=== PATIENT | male | born 1955 | race Caucasian/White ===

== ENCOUNTER 2023-09-03 11:35 | Inpatient (IN) | payer OTHER, SELFPAY ==
[2023-09-03] VITALS (25 sets, daily range): BP systolic 95–129; BP diastolic 44–59; BMI 25.2; BMI 25.8
--- NOTE | 2023-09-03 08:56 | ED.GENMED ---
History of Present Illness
General
Chief Complaint: Dizziness
Source: patient, spouse and ambulance crew
Exam Limitations: none
Time Seen by Provider: 09/03/23 08:52
Nursing documentation reviewed up to this point in time: agreed with
History of Present Illness
History of Present Illness:
68-year-old male presents emergency department due to multiple syncope episodes and black stools. He went to urgent care, and passed out. He vomited, states it was water. He drinks 6-8 beers daily.
Past History
Past History
ED Past Medical History: None
ED Past Surgical History: Orthopedic (Knee surgery, shoulder surgery, hip replacement)
Social History
Tobacco: Non-smoker
Alcohol: Chronic alcoholic
Drug: None
Personal:
Living: with family
Review of Systems
Review of Systems
Allergies reviewed?: Yes
All Other Systems: Not applicable
Constitutional: Reports no symptoms
EENT: Reports no symptoms
Respiratory: Reports no symptoms
Cardiac: Reports syncope
ABD/GI: Reports vomiting and black stools
: Reports no symptoms
Musculoskeletal: Reports no symptoms
Skin: Reports no symptoms
Neurological: Reports no symptoms
Endocrine: Reports no symptoms
Hematologic/Lymphatic: Reports no symptoms
Psychiatric: Reports no symptoms
Phy Exam
Physical Exam
Physical Exam:
Physical Exam
General: BP 95/51
Neck: supple. no meningeal signs. normal posterior pharynx
Heart: s1/s2 regular rate and rhythm, no murmur. equal radial
pulses.
HEENT: Pupils equal round reactive to light, EOMI
Lungs: no acute respiratory distress. clear bilaterally
Abdomen: normal bowel sounds. not tender. no CVAT, rectal exam maroonish blackish stool guaiac positive
Neuro: alert and oriented. no focal neurological deficits
Skin: no rash
Psychiatric: well kept. interactive and cooperative
Extremities: no edema. no calf tenderness. negative homans. good distal pulses
Course
Orders/Labs/Results
Orders:
Orders
09/03/23 08:53
Cardiac Monitoring- Treatment ONCE
IV Insert/Care/Rem.- Treatment PRN
09/03/23 08:59
Type+Screen Urgent
Complete Blood Count/With Diff Urgent
Comprehensive Metabolic Panel Urgent
Glycohemoglobin (HgbA1c) Urgent
Magnesium Urgent
Comment: MAG ADDED ON BY FLOOR 1:40PM 09-03-23
Phosphorus Urgent
Comment: HGBA1C & PHOS ADDED ION BY FLOOR 3:30PM 09-03-23
Troponin I Urgent
09/03/23 09:03
EKG [Electrocardiogram (*1)] Urgent
Reason for Study: Syncope
09/03/23 09:04
EKG- Treatment ONCE
09/03/23 09:12
PTT Urgent
Prothrombin Time Urgent
09/03/23 09:20
Pantoprazole 80 mg/100 ml Nss [Protonix] 80 mg in 100 ml IV NOW
Pantoprazole [Protonix IV] 80 mg IV NOW STA
09/03/23 09:22
Octreotide [Sandostatin] 50 mcg IV NOW STA
09/03/23 09:24
0.9% Sodium Chloride 1000 ml [Nss] 1,000 ml IV BOLUS
09/03/23 09:26
Octreotide Acetate [Sandostatin] 600 mcg 0.9% Sodium Chloride 500 ml [Nss] 500 ml IV NOW
09/03/23 09:33
Blood Bank Products [* Blood Bank Products] Urgent
'leil[facility] Orders: 1 unit prbcs
Blood Bank Products: *Packed RBC Leuko(PRBC's)
Quantity: 1
Transfuse Today: Yes
Reason: Bleeding
09/03/23 11:11
Admit/Transfer Patient As Directed
Co-Sign Provider:
Level of Care: Inpatient admission
Assign to:: ICU
Physician / Group: Raymond
Diagnosis: Acute GI bleed
Reason for Hospitalization: Transfusion, GI consult
Expected length of stay greater than two midnights?: Yes
ELOS- Estimated Length of Stay in days: 4
I certify the patient meets the requirements for IP care: Yes
09/03/23 11:12
Code Status As Directed
Resuscitation Status: Full Code
09/03/23 13:31
0.9% Sodium Chloride 1000 ml [Nss] 1,000 ml IV 80 mls/hr
0.9% Sodium Chloride [Nss (Preservative Free)] See Protocol IV PRN PRN
FOLic ACID [Folvite] 1 mg 0.9% Sodium Chloride 50 ml [Nss] 50 ml IV DAILYPRN
Lorazepam [Ativan] 1 mg IV Q1HPRN PRN
Lorazepam [Ativan] 1 mg PO Q2HPRN PRN
Lorazepam [Ativan] 2 mg IV Q1HPRN PRN
09/03/23 13:31
Case Management Consult Once
Case Management Consult: Other
Comment: Substance abuse counseling
DIETARY CONSULT Routine
Reason for Consult: Nutrition support, possible refeeding guidelines
GASTROINTESTINAL CONSULT Routine
Consulting Provider: Doreen Power
Was physician already notified: Yes
Glassine Machine Tender Consult Routine
Consulting Provider: Rani Koenig
Was physician already notified: Yes
Activity As Directed
Activity Level: Bedrest
MSAS SCORE As Directed
MSAS Score 0-4: Repeat MSAS every 2 hours until 0-4 for three consecutive assessments, then every 4 hours x 48
hours.
MSAS Score 5-7: For MILD withdrawl symptoms. Repeat MSAS and RASS every 2 hours
MSAS Score 8-11: For MODERATE withdrawal symptoms. Repeat MSAS and RASS every 1 hour. Consider ICU or IMU
level of care.
MSAS Score > 11: For SEVERE withdrawal symptoms. Repeat MSAS and RASS every 1 hour. Notify provider, consider
ICU level of care.
MSAS Additional Instructions: If no improvement or no decrease in score from severe to moderate within 12
hours, consult psychiatry
MSAS Notify Provider: Notify provider if patient requires more than 10 mg of Lorazepam in eight hour period.
Sequential Compression Device [Pneumatic Compression Sleeves] As Directed
Type: Knee high
DX Deep Vein Thrombosis Video Routine
09/03/23 16:00
Phenobarbital Sodium [Phenobarbital] 97.5 mg IV TID
Thiamine Injection 200 mg IV Q8
09/03/23 18:00
HH [H&H] Routine
09/03/23 19:00
Pantoprazole 80 mg/100 ml Nss [Protonix] 80 mg in 100 ml IV Q10H
09/03/23 22:00
Octreotide Acetate [Sandostatin] 600 mcg 0.9% Sodium Chloride 500 ml [Nss] 500 ml IV Q12H
09/04/23 06:00
BMP [Basic Metabolic Panel] IN AM
CBC/With Diff [Complete Blood Count/With Diff] IN AM
Magnesium IN AM
09/04/23 08:00
FOLic ACID [Folvite] 1 mg PO DAILY
09/05/23 06:00
CBC/With Diff [Complete Blood Count/With Diff] IN AM
09/05/23 16:00
Phenobarbital [Luminal] 64.8 mg PO TID
09/06/23 06:00
CBC/With Diff [Complete Blood Count/With Diff] IN AM
09/06/23 20:00
Thiamine HCl [Vitamin B1] 100 mg PO BID
09/07/23 16:00
Phenobarbital [Luminal] 32.4 mg PO TID
Abnormal Lab Results
09/03/23
08:59
RBC 2.46 L 10^6/uL
(4.70-6.10)
Hgb 7.6 L g/dL
(13.0-18.0)
Hct 22.5 L %
(39.0-52.0)
MPV 10.6 H fL
(7.4-10.4)
Abs Immat Gran (auto) 0.1 H 10^3/uL
(0-0.05)
Absolute Neuts (auto) 7.2 H 10^3/uL
(1.4-6.5)
Immature Gran % 0.6 H %
(0-0.5)
Sodium 131 L mmol/L
(135-145)
BUN 39 H mg/dl
(9-20)
Glucose 183 H mg/dl
(70-99)
Calcium 7.7 L mg/dl
(8.4-10.2)
Total Protein 4.8 L g/dl
(6.3-8.2)
Albumin 2.9 L g/dl
(3.5-5.0)
Crossmatch IS Only See Detail
09/03/23 08:59
09/03/23 08:59
Vital Signs
Initial and Last Documented VS:
Initial Vital Signs
Temp Pulse Resp BP Pulse Ox
97.8 F 85 15 129/49 100
09/03/23 08:41 09/03/23 08:41 09/03/23 08:41 09/03/23 08:41 09/03/23 08:41
Last Documented Vital Signs
Temp Pulse Resp BP Pulse Ox
98.5 F 80 18 118/54 100
09/03/23 14:18 09/03/23 14:18 09/03/23 14:18 09/03/23 14:18 09/03/23 12:30
MDM/Problems Addressed
Differential Diagnosis Includes:
Dysrhythmia, GI bleed
MDM/Problems Addressed:
68-year-old male with GI bleed, syncope. 1 unit packed red blood cells, Protonix, octreotide given. GI to see patient.
*Radiology
Radiology exam reviewed: radiology read reviewed (Chest x-ray no acute findings)
*Pulse Oximetry
Patient hypoxic: no
*EKG
Interpreted by ED Provider?: Yes
EKG Intrepretation Date: 09/03/23
EKG Intrepretation Time: 09:08
Interpretation: abnormal
Comparison EKG: no comparison EKG present
Heart Rate: 90
Rate: normal
Rhythm: sinus
Evangeline: normal axis
Interval: normal interval
QRS Pattern: normal QRS
Ischemia: non-specific ST changes
*Field Service Manager Interpretation
Rate: normal
Interpretation: normal
Heart Rate: 95
Rhythm: sinus
*Critical Care Note
Total Time (30-74mins, 75-104mins- exclusive of procedures): 30
comment:
Critical care statement: A total of 30 minutes of critical care time was provided for this patient. This includes management of unstable vital signs, evaluation of the patient at bedside, reviewing the patient's pertinent medical records, discussion
with consultants, review of old EKGs and review of pertinent medical records. This time with separate from time utilized to perform the aforementioned documented procedures
Patient Management
Social determinants of health affecting care: Substance abuse (alcohol)
Discussion with other providers: Hospitalist and Transcription (GI)
Escalation/DeEscalation of care consider admission/obs:
admit indicated
ED Attending Note
-
Portions of this chart may have been created with voice recognition software.� Occasional wrong word or��sound alike� substitutions may have occurred due to the inherent limitations of voice recognition software.
Discharge Plan
Departure
Patient Disposition: Admit
Date of Disposition: 09/03/23
Time of Disposition: 09:32
Admit to: ICU
Presentation/result/management discussed w/ accepting MD/DO: Hospitalist
Patient with high blood pressure during this ER visit?: No
Condition: Fair
Discharge Problem:
Acute upper gastrointestinal bleeding, Acute blood loss anemia
Interventions
Interventions:
*Risk Screen - Suicide Last Done: 09/03/23 08:41
*General Assessment Last Done: 09/03/23 08:41
*Neglect/Abuse Screening Last Done: 09/03/23 08:41
ED- Fall Risk Assessment Last Done: 09/03/23 08:55
*ED COVID-19 Vaccine History Last Done: 09/03/23 08:55
*Nursing Disposition Last Done: 09/03/23 12:53
ED- Neurological Assessment Last Done: 09/03/23 08:41
ED- Cardiac Assessment Last Done: 09/03/23 08:41
ED Swallowing Screen Last Done: 09/03/23 08:55
Discharge Date and Time
Discharge Date/Time: 09/03/23 12:53
[2023-09-03 09:09] LABS: % Basophils 0.6 % (0-2); % Eosinophils 0.5 % (0-6); % Immature Granulocytes 0.6 % (0-0.5); % Lymphocytes 20.6 % (20.5-51.1); % Monocytes 6.1 % (1.7-9.3); % Neutrophils 71.6 % (42.2-75.2); Absolute Basophils 0.1 10^3/uL (0-0.2); Absolute Eosinophils 0.1 10^3/uL (0-0.7); Absolute Immature Granulocytes 0.1 10^3/uL (0-0.05); Absolute Lymphocytes 2.1 10^3/uL (1.2-3.4); Absolute Monocytes 0.6 10^3/uL (0.1-0.6); Absolute Neutrophils 7.2 10^3/uL (1.4-6.5); Hematocrit 22.5 % (39.0-52.0); Hemoglobin 7.6 g/dL (13.0-18.0); Mean Corp Hgb Conc. 33.8 g/dL (33.0-37.0); Mean Corpuscular Hgb 30.9 pg (27.0-31.0); Mean Corpuscular Volume 91.5 fL (80.0-94.0); Mean Platelet Volume 10.6 fL (7.4-10.4); Nucleated Red Blood Cells % 0 % (-); Platelet Count 197 10^3/uL (130-400); Red Blood Cell Count 2.46 10^6/uL (4.70-6.10); White Blood Cell Count 10.1 10^3/uL (4.8-10.8)
[2023-09-03 09:20] LABS: ALT (SGPT) 24 U/L (0-50); AST (SGOT) 26 U/L (17-59); Albumin 2.9 g/dl (3.5-5.0); Alkaline Phosphatase 59 U/L (38-126); Blood Urea Nitrogen 39 mg/dl (9-20); Calcium 7.7 mg/dl (8.4-10.2); Carbon Dioxide 23 mmol/L (22-30); Chloride 103 mmol/L (98-107); Estimated Creatinine Clearance 83 ml/min; Glucose 183 mg/dl (70-99); Potassium 4.1 mmol/L (3.5-5.1); Sodium 131 mmol/L (135-145); Total Bilirubin 0.6 mg/dl (0.2-1.3); Total Protein 4.8 g/dl (6.3-8.2); eGFR > 60.00
[2023-09-03 09:31] LABS: Troponin I < 0.012 ng/ml
[2023-09-03] MEDS: SANDOSTATIN 50 MCG IV (09:34)
[2023-09-03] MEDS: NSS 1000 IV ×2 (09:39→14:57)
[2023-09-03] MEDS: PROTONIX IV 80 MG IV (09:39)
[2023-09-03 09:41] LABS: INR 1.08; PT 13.9 Sec (11.4-14.6)
[2023-09-03] MEDS: PROTONIX 100 IV ×2 (09:46→19:05)
[2023-09-03] MEDS: SANDOSTATIN 500.6 MCG IV (09:52)
[2023-09-03 09:56] LABS: APTT 23.4 Sec (23.4-35.0)
--- NOTE | 2023-09-03 10:09 | CON.GI ---
Addendum entered and electronically signed by Doreen Power MD 09/03/23 12:48:
I saw and examined the patient.
The ICE SCRAPER or PA's note was reviewed and I agree with the note.
Comment:
Pt with a hx of etoh, nsaid use with melena, hypotension. Never had episodes before, no hx of egd.
abd: soft, nontender
hgb 7.6
impression:
UGIB
plan:
NPO
transfuse as needed
IV PPI ggt and octreotide for now.
EGD urgent
avoid nsaids
Original Note:
Consultation
-
Date/Time Consultation Requested: 09/03/23 0945
Date/Time Consultation Performed: 09/03/23 1015
Requesting Provider: Zoran Connelly DO
Performing Provider: MATTHIAS Orellana, Doreen Power MD
Reason for Consultation: melena
Medical History
Chief Complaint / HPI
Chief Complaint: black stools, dizziness
History of Present Illness:
Pt is a 68yo with past hx orthopedic surgeries, daily ETOH use, colon polyp, family hx colon Cancer with onset of black stool and near syncope. He related have a normal hbg on last check in May. He admits to Motrin use 4 tabs about 5 days per
week. He typically will have normal stools but noted with about 4 episode of black stools since 2 am. On admission noted with hypotension hbg down to 7.6 with BUN 39 and maroonish/black stool in ER exam. Pt admits to years of daily ETOH 6-8
drinks.
Pt denies dysphagia, odynophagia, GERD, nausea, vomiting, abdominal pain, diarrhea, constipation or red stools. recent wt loss 5 lbs some intention and unintentional loss. No anticoagulation use. No prior EGD. Hx several colonoscopies at
[facility] with hx polyp last completed 1 year ago.
Past Medical History
Past Medical History: Other (colon polyps)
Past Surgical History: Orthopedic (knee surgery, shoulder surgery, hip surgery )
Social History
Tobacco: Non-Smoker
Alcohol: Daily (6-8 beers daily )
Drug: None
Personal:
Living: With Family
Employment: Retired
Family History
Family History: Other (father with hx colon Ca on 60's, no family hx liver problems)
Allergies / Home Medications
Allergy/AdvReac Type Severity Reaction Status Date / Time
No Known Allergies Allergy Verified 09/03/23 08:58
�Medication �Instructions �Recorded
ibuprofen 200 mg tablet 800 mg PO DAILYPRN PRN mild pain 09/03/23
Review of Systems
-
History Source: Patient and Family
Constitutional: Reports Weight Loss (few lbs )
EENT: Reports No Symptoms
Respiratory: Reports No Symptoms
Cardiac: Reports Other (near syncope prior to admission )
Abdomen/GI: Reports Black Stools
: Reports No Symptoms
Musculoskeletal: Reports Joint Pain
Skin: Reports No Symptoms
Neurological: Reports Weakness
Endocrine: Reports No Symptoms
Hematologic/Lymphatic: Reports Bleeding
Vital Signs
Temp Pulse Resp BP Pulse Ox
97.8 F 77 17 99/54 98
09/03/23 08:41 09/03/23 10:00 09/03/23 10:00 09/03/23 10:00 09/03/23 10:00
Physical Exam
Exam
General: Well Developed, Well Nourished and No Apparent Distress
HEENT: Normocephalic and Anicteric
Respiratory: Clear
Cardiac: Regular Rhythm
GI: Soft, Non Tender and Non Distended
Rectal: Other (per ER black/burgundy stool)
Musculoskeletal: No Clubbing and No Cyanosis
Skin: Warm and Dry
Neuro: Awake, Alert and AO x 3
Psych: Calm
Results
WBC 10.1 10^3/uL (4.8-10.8) 07 08:59
Hgb 7.6 g/dL (13.0-18.0) L 09/03/23 08:59
Hct 22.5 % (39.0-52.0) L 09/03/23 08:59
MCV 91.5 fL (80.0-94.0) 07 08:59
Plt Count 197 10^3/uL (130-400) 07 08:59
Absolute Neuts (auto) 7.2 10^3/uL (1.4-6.5) H 09/03/23 08:59
PT 13.9 Sec (11.4-14.6) 09/03/23 09:12
INR 1.08 09/03/23 09:12
APTT 23.4 Sec (23.4-35.0) 09/03/23 09:12
Sodium 131 mmol/L (135-145) L 09/03/23 08:59
Potassium 4.1 mmol/L (3.5-5.1) 09/03/23 08:59
Chloride 103 mmol/L (98-107) 09/03/23 08:59
Carbon Dioxide 23 mmol/L (22-30) 09/03/23 08:59
BUN 39 mg/dl (9-20) H 09/03/23 08:59
Creatinine 0.8 mg/dL (0.7-1.3) 09/03/23 08:59
Calcium 7.7 mg/dl (8.4-10.2) L 09/03/23 08:59
Total Bilirubin 0.6 mg/dl (0.2-1.3) 09/03/23 08:59
AST 26 U/L (17-59) 09/03/23 08:59
ALT 24 U/L (0-50) 09/03/23 08:59
Alkaline Phosphatase 59 U/L (38-126) 09/03/23 08:59
Diagnostic Image Results:
Prior GI Procedures:
EGD: none
Colonoscopy: burak sosa last 1 year ago hx polyps
Assessment / Plan
-
Pt is a 68yo with past hx orthopedic surgeries, daily ETOH use, colon polyp, family hx colon Cancer with onset of black stool and near syncope. He related have a normal hbg on last check in May. He admits to Motrin use 4 tabs about 5 days per
week. He typically will have normal stools but noted with about 4 episode of black stools since 2 am. On admission noted with hypotension hbg down to 7.6 with BUN 39 and maroonish/black stool in ER exam. Pt admits to years of daily ETOH 6-8
drinks.
-melena with concern for UGI bleed
-symptomatic anemia with acute blood loss
-frequent NSAID use
-daily ETOH use
-hypoalbuminemia
other med problems:
-hx ortho surgeries in past
-hx colon polyps
-family hx colon Ca - father
PLAN:
Etiology of symptoms with concern for active Upper GI bleed with syncope, melena, hypotension and drop in hbg-- PUD with NSAID use, esophageal varices, portal HTN, gastritis vs other
plan for EGD today --pt agreeable to proceed
PPI and octreotide gtt
2 large bore IV's
for transfusion today
trend hbg
NPO
ETOH/ NSAID abstinence
updated at bedside
-
-
Thank you for consultation and allowing me to participate in the patient's care. Please call the healthcare economics consultant GI physician during the after hours with any questions or concerns.
--- NOTE | 2023-09-03 11:18 | HPS.HSE ---
Family Physician
-
Family Physician: Babs Lauren MD
Chief Complaint
-
Black stools, syncope
History of Present Illness
68-year-old male, daily drinker of alcohol, here with syncopal episodes twice during the night and melena. Denies hematochezia. Denies abdominal pain. Denies history of GI bleeding. Takes Motrin occasionally but not daily.
Medical History
Past Medical History
Past Medical History: Reports None
Past Surgical History: Reports Orthopedic
Social History
Tobacco: Non-smoker
Alcohol: Daily
Drug: None
Personal:
Living: With Family
Family History
Family History: Not pertinent
Allergies / Home Medications
Allergies reflects when Allergies were last updated in [facility].
Home Medications with original date entered in [facility]
Allergy/Medication List:
Allergies
Allergy/AdvReac Type Severity Reaction Status Date / Time
No Known Allergies Allergy Verified 09/03/23 08:58
Home Medications
ibuprofen 200 mg tablet 800 mg PO DAILYPRN PRN mild pain 09/03/23
Review of Systems
-
History Source: Patient and Family
A 12 point ROS was completed and negative except as noted: Yes
Physical Exam
Vital Signs
Vital Signs
Temp Pulse Resp BP Pulse Ox
98.7 F 74 19 96/44 99
09/03/23 11:03 09/03/23 11:03 09/03/23 11:03 09/03/23 11:03 09/03/23 11:03
Physical Exam
General: Well Developed, Well Nourished, No Apparent Distress and Comfortable
HEENT: NormoCephalic and Moist mucous membranes
Respiratory: Clear
Cardiac: S1/S2 and Regular Rhythm
GI: Soft, Non Tender and Non Distended
Genito-urinary: Deferred by me
Musculoskeletal: No Clubbing, No Cyanosis and No Edema
Skin: Warm and Dry
Neuro: AO x 3
Hematologic/Lymphatic: No Lymphadenopathy
Psych: Calm
Laboratory Results
-
09/03/23 08:59
09/03/23 08:59
Laboratory Results
PT 13.9 Sec (11.4-14.6) 09/03/23 09:12
INR 1.08 09/03/23 09:12
APTT 23.4 Sec (23.4-35.0) 09/03/23 09:12
Total Bilirubin 0.6 mg/dl (0.2-1.3) 09/03/23 08:59
AST 26 U/L (17-59) 09/03/23 08:59
ALT 24 U/L (0-50) 09/03/23 08:59
Alkaline Phosphatase 59 U/L (38-126) 09/03/23 08:59
Troponin I < 0.012 ng/ml 09/03/23 08:59
Impression/Plan
-
Acute GI bleed -probably upper GI bleed. High BUN to creatinine ratio noted. Admit to ICU, consult GI and multimedia coordinator. N.p.o., IV fluids. Await endoscopy. IV Protonix, octreotide.
Hypotension likely due to volume depletion due to blood loss. Continue IV fluid support.
Severe alcohol use disorder -drinks beer daily, 6 to 8 cans. Last drink was yesterday. Watch for alcohol withdrawal syndrome. Alcohol abstinence recommended. Patient denies history of alcohol withdrawal.
Acute blood loss anemia -due to GI bleed. Hemoglobin 7.6 this morning. 1 unit of blood ordered. Monitor closely.
Hyponatremia -probably due to acute illness, high ADH levels. Monitor for now.
Full code
Updated at the bedside.
--- NOTE | 2023-09-03 13:44 | CON.INTV ---
Consultation
Consultation Request
Date/Time Consultation Requested: 09/03/23
Date/Time Consultation Performed: 09/03/23
Performing Provider: Arya
Reason for Consultation: Critical Care
Medical History
-
History of Present Illness:
Patient is a 68-year-old male with history of chronic ETOH use, presenting to ER for multiple syncopal episodes and melena. Had gone to urgent care and syncopized with vomiting. Denies hematochezia, abdominal pain. Denies history of GI
bleeding. Takes Motrin occasionally but not daily.
Admits to 6-8 beers daily. In ER, Hb 7.6. Went to urgent endoscopy showing 8mm duodenal ulcer successfully injected with 2 mL of epinephrine and two hemostatic clips were placed.
He is admitted to ICU for acute UGIB.
Past Medical History
Past Medical History: Other (see below)
Social History
Tobacco: Non-smoker
Alcohol: Daily
Drug: None
Family History
Family History: Reviewed & Not Pertinent
Allergies / Home Medications
Allergies
Allergy/AdvReac Type Severity Reaction Status Date / Time
No Known Allergies Allergy Verified 09/03/23 08:58
Home Medications
�Medication �Instructions �Recorded �Confirmed �Last Taken �Type
ibuprofen 200 mg tablet 800 mg PO DAILYPRN PRN mild pain 09/03/23 09/03/23 4 Days Ago History
~08/30/23
Review of Systems
-
History Source: Patient
All other systems: Negative unless noted
Vitals / Labs / Diagnostic Testing
Vital Signs
Temp Pulse Resp BP Pulse Ox
98.7 F 93 17 113/52 100
09/03/23 11:03 09/03/23 12:30 09/03/23 12:30 09/03/23 12:30 09/03/23 12:30
Lab Data
09/03/23 08:59
Laboratory Results
09/03/23
09:12
PT 13.9
INR 1.08
APTT 23.4
Diagnostic Testing:
Physical Exam
-
HEENT: Normocephalic, Anicteric and Moist Mucous Membranes
Cardiovascular: S1/S2 and Regular Rhythm
Respiratory: Clear and Non-Labored Respirations
GI: Soft, Non Distended and Non Tender
Neurology: Awake, Alert, Oriented, AO x 3 and No Motor Deficits
Skin: Warm, Dry and Good Color
General: Comfortable and Other (NAD)
Assessment
-
Patient is a 68-year-old male with history of chronic ETOH use, presenting to ER for multiple syncopal episodes and melena. Had gone to urgent care and syncopized with vomiting. Admits to 6-8 beers daily. In ER, Hb 7.6. Went to urgent
endoscopy showing 8mm duodenal ulcer successfully injected with 2 mL of epinephrine and two hemostatic clips were placed. He is admitted to ICU for acute UGIB.
Duodenal ulcer s/p EGD with epi and clips 09/03/23
Acute blood loss anemia from above
Syncope
N/V
Hyponatremia, mild
Hyperglycemia
Hypocalcemia
Conditions present CLAIM REPRESENTATIVE
Chronic daily ETOH use
Plan
No current signs of metabolic encephalopathy or MS changes/following commands
ETOH use disorder noted, 6-8 beers/day for 50+ years
Quit in past before for 6 mos but denies history of w/d
At high risk, agree with MSAS, alcohol w/d protocol
Denies pain at this time.
Pain/sedation: PRN MSAS
RASS goals: 0
Hemodynamically stable, not requiring pressors.
Cardiac history reviewed--none
No prior ECHO for review
Monitor on telemetry
Oxygen needs: stable on RA
Prior history of lung disease: none but suspect ANG, nonsmoker
Supplemental O2 as indicated to maintain sats > 89%
CXR/CT reviewed indicating NAD
Repeat as needed
UGIB s/p EGD 09/03/23: 8mm duodenal ulcer s/p successfully injected with 2 mL of a 0.1 mg/mL solution of epinephrine and two hemostatic clips were placed
NPO, resume diet when able
Continue PPI
GI following
ETOH use, no history of cirrhosis, follow LFTs
Gang Plank Workman recommendations
Aspiration precautions, HOB > 30 degrees
Speech therapy eval can be considered if at elevated risk
Creat at baseline, no history of renal disease
Void trials
Follow urine output, critical I/Os
Replete electrolytes as needed
No signs/symptoms suspicious for infectious etiology at this time
Observe off antibiotics for now
Follow fever trend, WBC count
Acute blood loss anemia 2/2 GIB
Transfusion ongoing, repeat H&H pending
DVT prophylaxis as assessed based on risk, including mechanical SCDs
Can transfuse if indicated for Hb <7, plt < 10
INR 1.08
No prior h/o diabetes or thyroid disease
Monitor accuchecks PRN/SS coverage if needed
Hyperglycemia noted
Add HbA1c to labs
We will follow
Diagnostic Data
Chest X-Ray: 09/03/23- Unremarkable exam
CT Scan:
Echo:
PFT's:
Reports and relevant images were personally reviewed.
-----
Critical care time 50 mins -- this includes review of history, physical exam, medications, hemodynamic/ventilator parameters, laboratory data, imaging and discussion with house staff, pharmacy, respiratory therapy, student, and nursing.
[2023-09-03 14:11] LABS: Magnesium 1.8 mg/dl (1.6-2.3)
--- NOTE | 2023-09-03 14:25 | PTCARENOTE ---
Pt received in GI lab w/ Protonix gtt infusing at 8mg/hr.
--- NOTE | 2023-09-03 14:25 | PTCARENOTE ---
Pt transported from GI lab to Rm [id number] via stretcher at 1345 after report received from ED and GI laborer wrecking and salvaging's. Pt awake, alert and pain free at time assumed care of pt. Pt on RA w/ POx 98%. Oriented and appropriate, MSAS=0. Ordered unit PRBC finishing
transfusing. Pt placed on ICU monitors and orientation provided to pt on surroundings and use of call haney. PHysical assessment completed as documented. Pt's to room to visit pt. Dr Brown to room to update pt and on findings of EGD and
plan of care. Octreotide gtt d/c'ed per order Dr Brown and pt started on clear liquid diet. Current bedrest order reviewed w/ pt and . Pt provided urinal to void. SCD's applied bilaterally. Call haney w/in pt reach and safe environment
maintained.
--- NOTE | 2023-09-03 14:26 | PTCARENOTE ---
Pt received from GI lab w/ Protonix gtt infusing at 8mg/hr.
[2023-09-03] MEDS: THIAMINE INJECTION 200 MG IV ×2 (16:38→23:38)
[2023-09-03 16:55] LABS: Phosphorus 3.2 mg/dl (2.5-4.5)
--- NOTE | 2023-09-03 17:30 | PTCARENOTE ---
Pt continues to rest quietly, no complaints or changes noted. remains at bedside.
[2023-09-03 18:26] LABS: Hemoglobin 7.7 g/dL (13.0-18.0)
--- NOTE | 2023-09-03 20:13 | PTCARENOTE ---
Pt Aox3, VSS, NSR on monitor, denies pain. MSAS 0-2, pt claims he takes 'off' days from drinking from time to time and has never had any withdraw symptoms. Protonix gtt and IVF infusing per order. + bowel sounds, passing flatus, no BMs after EGD. Pt
offers no complaints at this time, will continue with plan of care.
[2023-09-04] VITALS (16 sets, daily range): BP systolic 105–152; BP diastolic 49–69; BMI 25.5
[2023-09-04] MEDS: NSS 1000 IV (01:30)
[2023-09-04 03:54] LABS: % Basophils 0.6 % (0-2); % Eosinophils 1.7 % (0-6); % Immature Granulocytes 0.3 % (0-0.5); % Monocytes 6.5 % (1.7-9.3); % Neutrophils 65.9 % (42.2-75.2); Absolute Eosinophils 0.1 10^3/uL (0-0.7); Absolute Lymphocytes 1.6 10^3/uL (1.2-3.4); Absolute Monocytes 0.4 10^3/uL (0.1-0.6); Absolute Neutrophils 4.2 10^3/uL (1.4-6.5); Hematocrit 21.2 % (39.0-52.0); Hemoglobin 7.3 g/dL (13.0-18.0); Mean Corp Hgb Conc. 34.4 g/dL (33.0-37.0); Mean Corpuscular Hgb 31.3 pg (27.0-31.0); Mean Platelet Volume 10.7 fL (7.4-10.4); Nucleated Red Blood Cells % 0 % (-); Platelet Count 136 10^3/uL (130-400); Red Blood Cell Count 2.33 10^6/uL (4.70-6.10); Red Cell Dist. Width 14.6 % (11.5-14.5); White Blood Cell Count 6.4 10^3/uL (4.8-10.8)
[2023-09-04 04:05] LABS: Blood Urea Nitrogen 16 mg/dl (9-20); Calcium 7.8 mg/dl (8.4-10.2); Carbon Dioxide 22 mmol/L (22-30); Chloride 112 mmol/L (98-107); Estimated Creatinine Clearance 83 ml/min; Glucose 103 mg/dl (70-99); Magnesium 2.1 mg/dl (1.6-2.3); Potassium 4.1 mmol/L (3.5-5.1); Sodium 137 mmol/L (135-145); eGFR > 60.00
--- NOTE | 2023-09-04 04:24 | PTCARENOTE ---
Pt Aox3, VSS, NSR on monitor, remains on Protonix gtt and IVF. No BM over night. MSAS-0. Hemoglobin 7.3 with morning labs.
[2023-09-04] MEDS: PROTONIX 100 IV (04:51)
[2023-09-04 04:53] LABS: Hepatitis C Antibody Negative (Negative)
--- NOTE | 2023-09-04 07:09 | W.PN.INTV ---
Today's Communication / Plan
Recommendations
s/p EGD with no further events ON
Hb stable
Diet advancement per GI
Ongoing MSAS protocol, observation
Encouraged PT/OT, OOB
Can likely transfer to floors today, we will sign off upon transfer
Assessment
-
Patient is a 68-year-old male with history of chronic ETOH use, presenting to ER for multiple syncopal episodes and melena. Had gone to urgent care and syncopized with vomiting. Admits to 6-8 beers daily. In ER, Hb 7.6. Went to urgent
endoscopy showing 8mm duodenal ulcer successfully injected with 2 mL of epinephrine and two hemostatic clips were placed. He is admitted to ICU for acute UGIB.
Duodenal ulcer s/p EGD with epi and clips 09/03/23
Acute blood loss anemia from above
Syncope
N/V
Hyponatremia, mild
Hyperglycemia
Hypocalcemia
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
Chronic daily ETOH use
Plan
No current signs of metabolic encephalopathy or MS changes/following commands
ETOH use disorder noted, 6-8 beers/day for 50+ years
Quit in past before for 6 mos but denies history of w/d
At high risk, agree with MSAS, alcohol w/d protocol
Denies pain at this time.
Pain/sedation: PRN MSAS--can likely wean taper
RASS goals: 0
Hemodynamically stable, not requiring pressors.
Cardiac history reviewed--none
No prior ECHO for review
Monitor on telemetry
Oxygen needs: stable on RA
Prior history of lung disease: none but suspect ANG, nonsmoker
Supplemental O2 as indicated to maintain sats > 89%
CXR/CT reviewed indicating NAD
Repeat as needed
UGIB s/p EGD 09/03/23: 8mm duodenal ulcer s/p successfully injected with 2 mL of a 0.1 mg/mL solution of epinephrine and two hemostatic clips were placed
Diet advancement per GI
Continue PPI
ETOH use, no history of cirrhosis, follow LFTs
House Steward/Stewardess recommendations
Aspiration precautions, HOB > 30 degrees
Speech therapy eval can be considered if at elevated risk
Creat at baseline, no history of renal disease
Void trials
Follow urine output, critical I/Os
Replete electrolytes as needed
No signs/symptoms suspicious for infectious etiology at this time
Observe off antibiotics for now
Follow fever trend, WBC count
Acute blood loss anemia 2/2 GIB
Transfusion ongoing, repeat H&H pending
DVT prophylaxis as assessed based on risk, including mechanical SCDs
Can transfuse if indicated for Hb <7, plt < 10
INR 1.08
No prior h/o diabetes or thyroid disease
Monitor accuchecks PRN/SS coverage if needed
Hyperglycemia noted
Add HbA1c to labs
Diagnostic Data
Chest X-Ray: 09/03/23- Unremarkable exam
CT Scan:
Echo:
PFT's:
Reports and relevant images were personally reviewed.
-----
Critical care time 31 mins -- this includes review of history, physical exam, medications, hemodynamic/ventilator parameters, laboratory data, imaging and discussion with house staff, pharmacy, respiratory therapy, client support manager, and nursing.
Subjective Dataa
Subjective Data
Date of Service:
Date of Service: September 04, 2023
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
Subjective:
Doing well, no complaints
No further bleeding noted, Hb stable
Objective Data
Data Reviewed
Vital Signs / I&O / Oxygen:
Vital Signs
Temp Pulse Resp BP Pulse Ox
98.6 F 63 19 112/54 96
09/04/23 03:20 09/04/23 04:15 09/04/23 04:15 09/04/23 04:00 09/04/23 04:15
Intake and Output
09/03/23 09/04/23 09/05/23
06:59 06:59 06:59
Intake Total 3040 / 3040
Output Total 3325 / 3325
Balance -285 / -285
SaO2 96
Physical Exam
General: Comfortable and Other (NAD)
HEENT: Normocephalic, Anicteric and Moist Mucous Membranes
Cardiovascular: S1-S2 and Regular Rhythm
Respiratory: Clear and Non-Labored Respirations
GI: Soft, Non Distended and Non Tender
Neurology: Awake, Alert, Oriented, AO x 3 and No Motor Deficits
Skin: Warm, Dry and Good Color
Labs/Micro/Reports
Lab Data
09/04/23 03:43
09/04/23 03:43
Laboratory Results
09/03/23
09:12
PT 13.9
INR 1.08
APTT 23.4
--- NOTE | 2023-09-04 07:55 | W.PN.HOSP.TC ---
Today's Communication/Plan
-
Transfuse
Advance diet if okay with GI service
Transfer out of ICU if stable
Assessment / Plan
Assessment / Plan
Gen-AAOx3, NAD
HEENT-NC, AT, anicteric, clear oral mm
Neck-supple
CV-reg, no M, +S1/S2
Lungs-clear B/L
Abd-soft, NT, ND
Ext-no edema
Musculoskeletal-no cyanosis, clubbing
Skin-warm and dry
Neuro-grossly non-focal
Psych-calm, cooperative
Acute GI bleed -due to duodenal ulcer noted on endoscopy. Ulcer was injected with epinephrine. 2 hemostatic clips were placed. No bleeding at the end of the procedure. Continue Protonix drip. Octreotide discontinued. Tolerating clears, advance
if okay with GI service. Hemodynamically stable, anticipate transfer out of ICU today.
Severe alcohol use disorder -drinks beer daily, 6 to 8 cans. Last drink was day prior to admission. Watch for alcohol withdrawal syndrome. Alcohol abstinence recommended. Patient denies history of alcohol withdrawal. Has not required any doses
of lorazepam so far.
Acute blood loss anemia -due to GI bleed. Hemoglobin 7.6 on admission, transfused 1 unit of blood yesterday. Repeat 7.7 yesterday afternoon. 7.3 this morning. Will transfuse second unit of blood today given significant GI bleed on presentation.
Hyponatremia -probably due to acute illness, high ADH levels. Sodium improved.
Hyperglycemia -rule out DM2. Hemoglobin A1c pending.
Full code
Anticipated Discharge: > 48 hours
Subjective/Interval History
-
Date of Service: September 04, 2023
Patient seen and examined. No complaints.
Objective Data
-
Labs:
Laboratory Results
09/04/23
03:43
WBC 6.4
Hgb 7.3 L
Hct 21.2 L
Plt Count 136 D
Sodium 137
Potassium 4.1
Chloride 112 H
Carbon Dioxide 22
BUN 16
Creatinine 0.8
Glucose 103 H
Calcium 7.8 L
Vital Signs:
Vital Signs
Temp Pulse Resp BP Pulse Ox
98.6 F 63 19 112/54 96
09/04/23 03:20 09/04/23 04:15 09/04/23 04:15 09/04/23 04:00 09/04/23 04:15
I&O
09/03/23 09/04/23 09/05/23
06:59 06:59 06:59
Intake Total 3040 / 3040
Output Total 3325 / 3325
Balance -285 / -285
Review of Systems
-
History Source: Patient
All other systems: Reviewed and negative
[2023-09-04] MEDS: THIAMINE INJECTION 200 MG IV ×3 (08:18→23:07)
[2023-09-04] MEDS: FOLVITE 1 MG PO (08:19)
--- NOTE | 2023-09-04 08:55 | PTCARENOTE ---
Received pt. @ change of shift. Assessment per charting- see flow sheet. Hgb 7.3 this AM, reviewed by Dr. Andrade and further orders received. 1 unit PRBC transfusing per orders- see TAR. Bedrest orders maintained during blood transfusion.
Tolerating clear liq diet; no BMs since arrival. Instructed on how to report care concerns and call haney in reach.
--- NOTE | 2023-09-04 10:01 | W.PN.GI.CBS2 ---
Today's Communication / Plan
-
advance diet
PPI q12
Assessment / Plan
-
Pt s/p EGD with DU, non bleeding s/p therapy on 09/02:
1. change PPI to q12
2. regular diet
3. follow hgb which has been stable
Subjective
Subjective
Date of Service: September 04, 2023
Pt doing well. No abdominal pain. tolerating liquids. no melena
Objective
Data Reviewed
Laboratory Data:
Laboratory Results
09/04/23 03:43
09/04/23 03:43
Laboratory Results
PT 13.9 Sec (11.4-14.6) 09/03/23 09:12
INR 1.08 09/03/23 09:12
APTT 23.4 Sec (23.4-35.0) 09/03/23 09:12
Phosphorus 3.2 mg/dl (2.5-4.5) 09/03/23 08:59
Magnesium 2.1 mg/dl (1.6-2.3) 09/04/23 03:43
Total Bilirubin 0.6 mg/dl (0.2-1.3) 09/03/23 08:59
AST 26 U/L (17-59) 09/03/23 08:59
ALT 24 U/L (0-50) 09/03/23 08:59
Alkaline Phosphatase 59 U/L (38-126) 09/03/23 08:59
Vital Signs and I&O:
Vital Signs
Temp Pulse Resp BP Pulse Ox
98.2 F 78 14 117/59 97
09/04/23 09:00 09/04/23 09:00 09/04/23 09:00 09/04/23 09:00 09/04/23 08:48
I&O
07/12/24 07/13/24 07/14/24
06:59 06:59 06:59
Intake Total 3040 / 3130 520 / 520
Output Total 3325 / 3325 700 / 700
Balance -285 / -195 -180 / -180
Physical Exam
Physical Exam
HEENT: Anicteric
GI: Soft, Non Distended and Non Tender
Neuro: Non Focal
--- NOTE | 2023-09-04 14:13 | PTCARENOTE ---
1 unit PRBC completed- see TAR. M/S level of care, environmental monitoring specialist removed. Protonix gtt and IVF d/c'd per orders. Diet/activity orders advanced per Dr. Andrade/Dr. Power. Stand by assisted pt. from bed to chair, gait steady. Tolerating OOB to
chair position. Also tolerating advanced diet. Pt.'s @ bedside, updated on plan of care. Call haney remains w in reach.
[2023-09-04] MEDS: NSS (PRESERVATIVE FREE) 10 ML IV (16:22)
[2023-09-04] MEDS: PROTONIX IV 40 MG IV (16:22)
[2023-09-05 05:46] LABS: % Basophils 0.4 % (0-2); % Eosinophils 1.6 % (0-6); % Immature Granulocytes 0.3 % (0-0.5); % Lymphocytes 18.1 % (20.5-51.1); % Monocytes 7.5 % (1.7-9.3); % Neutrophils 72.1 % (42.2-75.2); Absolute Eosinophils 0.1 10^3/uL (0-0.7); Absolute Lymphocytes 1.3 10^3/uL (1.2-3.4); Absolute Monocytes 0.5 10^3/uL (0.1-0.6); Hematocrit 23.6 % (39.0-52.0); Hemoglobin 8.2 g/dL (13.0-18.0); Mean Corp Hgb Conc. 34.7 g/dL (33.0-37.0); Mean Corpuscular Hgb 31.5 pg (27.0-31.0); Mean Corpuscular Volume 90.8 fL (80.0-94.0); Mean Platelet Volume 10.1 fL (7.4-10.4); Nucleated Red Blood Cells % 0 % (-); Platelet Count 145 10^3/uL (130-400); Red Cell Dist. Width 14.5 % (11.5-14.5)
[2023-09-05 06:00] VITALS: BMI 25.5
--- NOTE | 2023-09-05 07:54 | W.PN.GI.CBS2 ---
Today's Communication / Plan
-
PPI bid at d/c for 8 weeks
outpatient f/u
Assessment / Plan
-
Pt s/p EGD with DU, non bleeding s/p therapy on 09/02, hgb responded to 1 unit blood yesterday.
1. PPI bid 8 weeks at discharge
2. regular diet.
3. will have our office call him for GI f/u
will sign off call with questions
Subjective
Subjective
Date of Service: September 05, 2023
Pt with no bleeding, feels good, eating
Objective
Data Reviewed
Laboratory Data:
Laboratory Results
09/05/23 05:35
09/04/23 03:43
Laboratory Results
PT 13.9 Sec (11.4-14.6) 09/03/23 09:12
INR 1.08 09/03/23 09:12
APTT 23.4 Sec (23.4-35.0) 09/03/23 09:12
Phosphorus 3.2 mg/dl (2.5-4.5) 09/03/23 08:59
Magnesium 2.1 mg/dl (1.6-2.3) 09/04/23 03:43
Total Bilirubin 0.6 mg/dl (0.2-1.3) 09/03/23 08:59
AST 26 U/L (17-59) 09/03/23 08:59
ALT 24 U/L (0-50) 09/03/23 08:59
Alkaline Phosphatase 59 U/L (38-126) 09/03/23 08:59
Vital Signs and I&O:
Vital Signs
Temp Pulse Resp BP Pulse Ox
98.3 F 77 16 119/61 99
09/05/23 03:00 09/04/23 18:24 09/04/23 18:24 09/04/23 23:13 09/04/23 20:00
I&O
09/04/23 09/05/23 09/06/23
06:59 06:59 06:59
Intake Total 3040 / 3130 1310 / 1310
Output Total 3325 / 3325 1250 / 1250
Balance -285 / -195 60 / 60
Physical Exam
Physical Exam
GI: Soft, Non Distended and Non Tender
Extremities: No Edema
Neuro: Non Focal
[2023-09-05] MEDS: FOLVITE 1 MG PO (07:55)
[2023-09-05] MEDS: PROTONIX IV 40 MG IV (07:56)
[2023-09-05] MEDS: THIAMINE INJECTION 200 MG IV (07:56)
[2023-09-05] MEDS: NSS (PRESERVATIVE FREE) 10 ML IV (07:56)
--- NOTE | 2023-09-05 08:06 | W.PN.HOSP.TC ---
Today's Communication/Plan
-
Discharge
Assessment / Plan
Assessment / Plan
Gen-AAOx3, NAD
HEENT-NC, AT, anicteric, clear oral mm
Neck-supple
CV-reg, no M, +S1/S2
Lungs-clear B/L
Abd-soft, NT, ND
Ext-no edema
Musculoskeletal-no cyanosis, clubbing
Skin-warm and dry
Neuro-grossly non-focal
Psych-calm, cooperative
Acute GI bleed -due to duodenal ulcer noted on endoscopy. Ulcer was injected with epinephrine. 2 hemostatic clips were placed. No bleeding at the end of the procedure. Continue Protonix twice daily for 8 weeks as per gastroenterology.
Tolerating diet.
Severe alcohol use disorder -drinks beer daily, 6 to 8 cans. Last drink was day prior to admission. Watch for alcohol withdrawal syndrome. Alcohol abstinence recommended. Patient denies history of alcohol withdrawal. Has not required any doses
of lorazepam so far. I had a long discussion with patient today regarding strict alcohol abstinence given high risk for recurrent GI bleed with ongoing use. Avoid NSAIDs.
Patient states that he will likely just cut down on his drinking but not completely stop.
Acute blood loss anemia -due to GI bleed. Hemoglobin 8.2 today. Transfused 2 units of blood total this admission. Recommend ferrous sulfate every other day on discharge. Discussed with patient. CBC in 1 week with his primary care doctor.
Hyponatremia -probably due to acute illness, high ADH levels. Sodium improved.
Hyperglycemia -rule out DM2. Hemoglobin A1c 5.0.
Full code
Dispo -medically stable for discharge. Outpatient follow-up.
32 minutes spent in discharge process.
Anticipated Discharge: Today
Subjective/Interval History
-
Date of Service: September 05, 2023
Patient seen and examined. No complaints. Eating breakfast.
Objective Data
-
Labs:
Laboratory Results
09/05/23
05:35
WBC 7.0
Hgb 8.2 L
Hct 23.6 L
Plt Count 145
Vital Signs:
Vital Signs
Temp Pulse Resp BP Pulse Ox
98.3 F 77 16 119/61 99
09/05/23 03:00 09/04/23 18:24 09/04/23 18:24 09/04/23 23:13 09/04/23 20:00
I&O
09/04/23 09/05/23 09/06/23
06:59 06:59 06:59
Intake Total 3040 / 3130 1310 / 1310
Output Total 3325 / 3325 1250 / 1250
Balance -285 / -195 60 / 60
Review of Systems
-
History Source: Patient
All other systems: Reviewed and negative
--- NOTE | 2023-09-05 08:11 | W.DS.TRANS ---
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
-
Discharge Instructions:
Discharge Diagnosis/Procedures Duodenal ulcer, GI bleed, acute blood loss
anemia, alcohol use disorder
Diet Regular
Activity As tolerated
Driving Restrictions As prior to admission
Bathing Restrictions None
Blood Work CBC in 1 week with your primary care doctor
Instructions:
Stand-Alone Forms:
Changes to Home Medications: Yes
Discharge Medications:
DC Medications w/original date entered in [facility]
folic acid 1 mg tablet 1 mg PO DAILY #30 tabs 09/05/23
pantoprazole 40 mg tablet,delayed release (Protonix) 40 mg PO BID #60 tabs 09/05/23
thiamine HCl (vitamin B1) 100 mg tablet 100 mg PO BID #60 tabs 09/05/23
Home Medication Changes
Stop ibuprofen.
Pending Results: No
[2023-09-05 08:31] VITALS: BP 150/65
[2023-09-05 09:06] VITALS: BP 150/65
--- NOTE | 2023-09-05 09:12 | PTCARENOTE ---
Complete assessment done, VSS. Pt's am hgb today 8.3, ate reg diet breakfast without difficulty. OOB to chair, stable with ambulation.
--- NOTE | 2023-09-05 10:04 | CM ---
Addendum entered by Katie Roche RN 09/05/23 10:12:
CM received called back from Hua at [facility].
Original Note:
CM met with patient in room. Patient lives independently with . Patient has has a history of VN s/p r THR. Patient is active with his PCP. Patient uses [facility] for medication services.
CM discussed Drug and alcohol resources. Patient is agreeable to have [facility] follow him at him. CM left message for [facility].
PLAN: home, referral to [facility].
--- NOTE | 2023-09-05 10:53 | PTCARENOTE ---
Pt for discharge to home, all INTs d/c'd, instructions reviewed with pt, and prescription list given. Discharge instructions printed and given to pt. Pt being brought now via wheelchair to front door, meeting with pt's /car.
== END 2023-09-05 11:10 | disposition home or self-care (01) | DRG 378 ==
LOC: ICU 11:35
PROVIDERS: Internal Medicine; ADMITTING PHYSICIAN Hospitalist; CONSULT PHYSICIAN Internal Medicine; EMERGENCY PHYSICIAN Emergency Medicine; FAMILY PHYSICIAN Family Medicine
PROC: 30233N1 Transfusion of Nonautologous Red Blood Cells into Peripheral Vein, Percutaneous Approach (ICD-10-PCS; 2023-09-03)
PROC: 3E0G8GC Introduction of Other Therapeutic Substance into Upper GI, Via Natural or Artificial Opening Endoscopic (ICD-10-PCS; 2023-09-03)
DX: K26.4 Chronic or unspecified duodenal ulcer with hemorrhage (principal); D62 Acute posthemorrhagic anemia; E87.1 Hypo-osmolality and hyponatremia; F10.20 Alcohol dependence, uncomplicated; R73.9 Hyperglycemia, unspecified
CPT/HCPCS: 36430; 71045; 80048; 80053; 83036; 83735; 84100; 84484; 85014; 85018; 85025; 85610; 85730; 86803; 86850; 86900; 86901; 86920; 93005; 96361; 96374; 96375; 99291; P9016

== ENCOUNTER → 2023-11-22 06:18 | Day surgery (SDC) | payer OTHER, SELFPAY | LOC: GI 06:18 | PROVIDERS: ATTENDING PHYSICIAN Internal Medicine | DX: K27.9 Peptic ulcer, site unspecified, unspecified as acute or chronic, without hemorrhage or perforation (principal); K29.50 Unspecified chronic gastritis without bleeding; B96.81 Helicobacter pylori [H. pylori] as the cause of diseases classified elsewhere; K65.1 Peritoneal abscess | CPT/HCPCS: 43239; 88305; 88342 ==

== ENCOUNTER → 2023-12-22 11:44 | Outpatient (REF) | payer OTHER, SELFPAY | LOC: RAD 11:44 | PROVIDERS: ATTENDING PHYSICIAN Student in an Organized Health Care Education/Training Program; FAMILY PHYSICIAN Family Medicine | DX: M25.50 Pain in unspecified joint (principal); M79.641 Pain in right hand; M79.642 Pain in left hand; Z78.9 Other specified health status | CPT/HCPCS: 72114; 73120; 73630 ==

== ENCOUNTER → 2023-12-23 09:23 | Outpatient (REF) | payer OTHER, SELFPAY | LOC: EMG 09:23 | PROVIDERS: ATTENDING PHYSICIAN Student in an Organized Health Care Education/Training Program; FAMILY PHYSICIAN Family Medicine | DX: G62.9 Polyneuropathy, unspecified (principal); R20.0 Anesthesia of skin | CPT/HCPCS: 95886; 95911 ==